=== PATIENT | female | born 1945 | race Caucasian/White ===

== ENCOUNTER 2016-08-26 16:57 | Emergency (ER) | payer SELFPAY ==
[2016-08-26] MEDS ORDERED: BENADRYL IV ONE (17:18)
[2016-08-26] MEDS ORDERED: PEPCID IV ONE (17:19)
[2016-08-26] MEDS ORDERED: NACL 0.9% 500 ML 500 ML IV ONE ×2 (17:19→20:25)
[2016-08-26] MEDS ORDERED: VISTARIL PO ONE (20:26)
--- NOTE | 2016-08-26 21:01 | Emergency Department Report ---
HPI - General Chief Complaint: Allergic Reaction Time Seen by Provider: 08/26/16 20:13 - HPI HPI: 71-year-old female past medical history arthritis, migraines presents with complaint of rash since this morning on arms abdomen and legs, itchy hives ED Past Medical Hx - Past Medical History Previous Medical History?: Yes Hx Hypertension: No Hx Arthritis: Yes Hx Headaches / Migraines: Yes - Surgical History Past Surgical History?: Yes Additional Surgical History: elbow. hysterectomy - Social History Smoking Status: Never Smoker Substance Use Type: Non Opiate Pain, Prescribed, Other - Medications Home Medications: Home Medications Medication Instructions Recorded Confirmed Last Taken Type Gabapentin [Neurontin] 100 mg PO BID #30 capsule 01/07/14 Unknown Rx traMADol [Ultram 50 MG tab] 50 mg PO Q6HR PRN #20 tablet 01/28/16 Unknown Rx EPINEPHrine (NF) [Epipen (Nf)] 0.3 mg IM ONCE PRN #1 syringekit 08/26/16 Unknown Rx Famotidine [Pepcid] 20 mg PO BID PRN #30 tablet 08/26/16 Unknown Rx Prednisone [predniSONE 10 mg 10 mg PO .TAPER #1 tab.ds.pk 08/26/16 Unknown Rx (6-Day Pack, 21 Tabs)] diphenhydrAMINE [Benadryl CAP] 25 mg PO Q8HR PRN #30 capsule 08/26/16 Unknown Rx ED Review of Systems ROS: Stated complaint: RASH ON BODY Other details as noted in HPI Physical Exam - Physical Exam Vital Signs: Vital Signs 08/26/16 08/26/16 17:02 19:46 Temperature 98.1 F Pulse Rate 112 H 87 Respiratory 20 20 Rate Blood Pressure 122/83 Blood Pressure 125/64 [Left] O2 Sat by Pulse 94 96 Oximetry ED Course Vital Signs 08/26/16 08/26/16 17:02 19:46 Temperature 98.1 F Pulse Rate 112 H 87 Respiratory 20 20 Rate Blood Pressure 122/83 Blood Pressure 125/64 [Left] O2 Sat by Pulse 94 96 Oximetry ED Medical Decision Making - Medical Decision Making a/P:Urticaria 1-patient experienced significant relief of hives with Pepcid and steroids and Benadryl 2-hives have significantly reduced on clinical exam, patient has no intraoral involvement swelling no lip swelling no signs of angioedema or anaphylaxis no stridor patient is hemodynamically stable and o2sat is 100% o2 on room air 3-prednisone Dosepak, Benadryl, Pepcid 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 ED Disposition Clinical Impression: Hives Disposition: TO HOME OR SELFCARE Is pt being admited?: No Does the pt Need Aspirin: No Condition: Stable Instructions: Urticaria (ED), Itchy Skin (ED) Prescriptions: diphenhydrAMINE [Benadryl CAP] 25 mg PO Q8HR PRN #30 capsule PRN Reason: Itching EPINEPHrine (NF) [Epipen (Nf)] 0.3 mg IM ONCE PRN #1 syringekit PRN Reason: Anaphylaxis Famotidine [Pepcid] 20 mg PO BID PRN #30 tablet PRN Reason: Itching Prednisone [predniSONE 10 mg (6-Day Pack, 21 Tabs)] 10 mg PO .TAPER #1 tab.ds.pk Referrals: [facility] [Outside] - 3-5 Days Forms: Accompanied Note Time of Disposition: 23:46 Print Language: CROATIAN
[2016-08-26 23:50] VITALS: BP 116/55
== END 2016-08-27 00:06 | disposition home or self-care (01) ==
LOC: ED 16:57
DX: L50.9 Urticaria, unspecified (principal); M19.90 Unspecified osteoarthritis, unspecified site; G43.909 Migraine, unspecified, not intractable, without status migrainosus
CPT/HCPCS: 96361; 96374; 96375; 99283; J1200; J2930; J7040; Q0177